=== PATIENT | male | born 1960 | race Caucasian/White ===

== ENCOUNTER 2020-09-15 07:11 | Emergency (ER) | payer OTHER, MEDICAID ==
[~2020-09-15] VITALS: Ht 180.3 cm; Wt 89.7 kg
[2020-09-15] MEDS ORDERED: GABA-845 PO (07:24)
[2020-09-15] MEDS ORDERED: LEXA1TAB2 PO (07:24)
--- NOTE | 2020-09-15 08:00 | REP ---
INDICATION: ro foriegn body COMPARISON: None. TECHNIQUE: AP, lateral, bilateral oblique views . FINDINGS: The osseous structures and joint spaces are intact and normal. There is no evidence for acute fracture or dislocation. Surrounding soft tissues are unremarkable. No subcutaneous emphysema or radiodense foreign body. IMPRESSION: . No subcutaneous emphysema or foreign body. <Electronically signed by Gera Vanegas > 09/15/20 [id number]
[2020-09-15] MEDS ORDERED: LIDOCAINE 2% MDV 20ML VIAL SC ONE (08:40)
[2020-09-15 09:07] VITALS: BP 122/70
== END 2020-09-15 09:22 | disposition home or self-care (01) ==
LOC: M ED 07:11
DX: S60.551A Superficial foreign body of right hand, initial encounter (principal); X58.XXXA Exposure to other specified factors, initial encounter; Y92.89 Other specified places as the place of occurrence of the external cause; Y99.0 Civilian activity done for income or pay; F10.20 Alcohol dependence, uncomplicated; Z79.899 Other long term (current) drug therapy; F17.210 Nicotine dependence, cigarettes, uncomplicated

== ENCOUNTER → 2020-10-08 | Outpatient (REF) | payer MEDICAID ==
[~2020-10-08] MED LIST: GABA-845 PO; LEXA1TAB2 PO
[2020-10-08 17:02] LABS: BASO % 0.5 % (0.0-1.0); EOS # 0.2 10^3/uL (0.0-0.5); EOS % 2.9 % (0.0-3.0); HEMATOCRIT 40.1 % (42.0-52.0); HEMOGLOBIN 13.4 g/dl (13.5-17.5); MEAN CORPUSCULAR HEMOGLOBIN 32.5 pg (27.0-33.0); MEAN CORPUSCULAR HGB CONC 33.4 g/dl (32.0-36.5); MEAN CORPUSCULAR VOLUME 97.3 fl (80.0-96.0); MONO # 0.6 10^3/uL (0.0-0.8); MONO % 9.2 % (2.0-8.0); NEUTROPHILS # 3.5 10^3/uL (1.5-8.5); NEUTROPHILS % 55.2 % (36.0-66.0); PLATELET COUNT, AUTOMATED 260 10^3/uL (150-450); RED BLOOD COUNT 4.12 10^6/uL (4.30-6.10); WHITE BLOOD COUNT 6.3 10^3/uL (4.0-10.0)
[2020-10-08 17:09] LABS: ALBUMIN 4.2 GM/DL (3.2-5.2); ALT/SGPT 62 U/L (12-78); BILIRUBIN,TOTAL 0.2 MG/DL (0.2-1.0); BLOOD UREA NITROGEN 19 MG/DL (7-18); CALCIUM LEVEL 8.8 MG/DL (8.5-10.1); CARBON DIOXIDE LEVEL 31 MEQ/L (21-32); CHLORIDE LEVEL 107 MEQ/L (98-107); CHOLESTEROL LEVEL 207 MG/DL (<200); CHOLESTEROL RISK RATIO 6.272 (<5); CREATININE FOR GFR 1.09 MG/DL (0.70-1.30); GLOMERULAR FILTRATION RATE > 60.0 (>56); GLUCOSE, FASTING 106 MG/DL (70-100); HDL CHOLESTEROL 33 MG/DL (>40); LDL CHOLESTEROL 125 MG/DL (<100); NON-HDL-C 174 MG/DL; POTASSIUM SERUM 4.4 MEQ/L (3.5-5.1); SODIUM LEVEL 140 MEQ/L (136-145); TOTAL PROTEIN 7.2 GM/DL (6.4-8.2); TRIGLYCERIDES LEVEL 244 MG/DL (<150)
[2020-10-08 17:12] LABS: VITAMIN B12 LEVEL 468 PG/ML
[2020-10-08 17:13] LABS: FOLATE 8.5 NG/ML
[2020-10-08 17:23] LABS: HEPATITIS B SURFACE ANTIGEN NEGATIVE (NEGATIVE)
[2020-10-08 17:27] LABS: INR 0.94; PROTHROMBIN TIME 12.7 SECONDS (12.5-14.3)
[2020-10-08 17:28] LABS: PARTIAL THROMBOPLASTIN TIME 34.4 SECONDS (24.2-38.5)
[2020-10-08 17:49] LABS: HEPATITIS C VIRUS ABY INDEX < 0.0 INDEX (<0.8)
[2020-10-08 17:50] LABS: HEPATITIS B CORE ANTIBODY IGM NEGATIVE (NEGATIVE)
[2020-10-08 17:52] LABS: HEPATITIS A ANTIBODY IGM NEGATIVE (NEGATIVE)
== END ==
LOC: M LAB REF 16:20
PROVIDERS: ATTEND Pediatrics
DX: F10.20 Alcohol dependence, uncomplicated (principal); F41.8 Other specified anxiety disorders; Z13.220 Encounter for screening for lipoid disorders

== ENCOUNTER → 2020-10-17 | Outpatient (REF) | payer MEDICAID ==
[2020-10-17 19:10] LABS: PERCENT SATURATION 27.4 % (19.7-50.0)
== END ==
LOC: M LAB REF 17:01
PROVIDERS: ATTEND Pediatrics
DX: R73.9 Hyperglycemia, unspecified (principal); D50.9 Iron deficiency anemia, unspecified

== ENCOUNTER → 2021-06-10 | Outpatient (CLI) | payer BC, MEDICAID ==
[~2021-06-10] MED LIST changes: +GABA-283 PO; -GABA-845 PO
== END ==
LOC: M RAD 07:44
PROVIDERS: ATTEND Pediatrics
DX: Z82.49 Family history of ischemic heart disease and other diseases of the circulatory system (principal)

== ENCOUNTER → 2022-01-22 | Outpatient (REF) | payer BC ==
[2022-01-22 19:42] LABS: BASO % 0.3 % (0.0-1.0); EOS % 0.4 % (0.0-3.0); HEMATOCRIT 44.5 % (42.0-52.0); LYMPH # 1.9 10^3/uL (1.5-5.0); MEAN CORPUSCULAR HGB CONC 33.7 g/dl (32.0-36.5); MEAN CORPUSCULAR VOLUME 97.8 fl (80.0-96.0); MONO # 0.5 10^3/uL (0.0-0.8); MONO % 5.1 % (2.0-8.0); NEUTROPHILS # 7.7 10^3/uL (1.5-8.5); NEUTROPHILS % 74.9 % (36.0-66.0); PLATELET COUNT, AUTOMATED 295 10^3/uL (150-450); RED BLOOD COUNT 4.55 10^6/uL (4.30-6.10); WHITE BLOOD COUNT 10.2 10^3/uL (4.0-10.0)
[2022-01-22 19:52] LABS: ALBUMIN 4.2 GM/DL (3.2-5.2); ALT/SGPT 38 U/L (12-78); BILIRUBIN,DIRECT < 0.1 MG/DL (0.0-0.2); BILIRUBIN,TOTAL 0.5 MG/DL (0.2-1.0); BLOOD UREA NITROGEN 20 MG/DL (7-18); CALCIUM LEVEL 9.9 MG/DL (8.8-10.2); CARBON DIOXIDE LEVEL 27 MEQ/L (21-32); CHLORIDE LEVEL 106 MEQ/L (98-107); CHOLESTEROL LEVEL 203 MG/DL (<200); GLOMERULAR FILTRATION RATE > 60.0 (>49); GLUCOSE, FASTING 98 MG/DL (70-100); HDL CHOLESTEROL 43 MG/DL (>40); LDL CHOLESTEROL 127 MG/DL (<100); NON-HDL-C 160 MG/DL; POTASSIUM SERUM 4.5 MEQ/L (3.5-5.1); SODIUM LEVEL 140 MEQ/L (136-145); TOTAL PROTEIN 7.2 GM/DL (6.4-8.2); TRIGLYCERIDES LEVEL 165 MG/DL (<150)
[2022-01-22 21:00] LABS: HIV 1&2 SCREEN CENTAUR NEGATIVE (NEGATIVE)
[2022-01-22 21:42] LABS: HEMOGLOBIN A1c 5.3 %
== END ==
LOC: M LAB REF 16:27
PROVIDERS: ATTEND Pediatrics
DX: Z11.4 Encounter for screening for human immunodeficiency virus [HIV] (principal); R73.03 Prediabetes; F10.20 Alcohol dependence, uncomplicated

== ENCOUNTER → 2022-08-05 | Outpatient (REF) | payer OTHER, MEDICAID ==
[2022-08-05 17:36] LABS: BASO % 0.6 % (0.0-1.0); EOS # 0.2 10^3/uL (0.0-0.5); EOS % 3.1 % (0.0-3.0); HEMATOCRIT 44.7 % (42.0-52.0); HEMOGLOBIN 14.9 g/dl (13.5-17.5); LYMPH # 2.5 10^3/uL (1.5-5.0); LYMPH % 35.7 % (24.0-44.0); MEAN CORPUSCULAR HEMOGLOBIN 33.1 pg (27.0-33.0); MEAN CORPUSCULAR HGB CONC 33.3 g/dl (32.0-36.5); MEAN CORPUSCULAR VOLUME 99.3 fl (80.0-96.0); MONO # 0.7 10^3/uL (0.0-0.8); MONO % 9.5 % (2.0-8.0); NEUTROPHILS # 3.6 10^3/uL (1.5-8.5); NEUTROPHILS % 50.8 % (36.0-66.0); PLATELET COUNT, AUTOMATED 278 10^3/uL (150-450)
[2022-08-05 18:37] LABS: ALBUMIN 4.1 G/DL (3.2-5.2); BILIRUBIN,DIRECT 0.1 MG/DL (<0.4); BILIRUBIN,TOTAL 0.4 MG/DL (0.3-1.2); TOTAL PROTEIN 6.8 G/DL (5.7-8.2)
[2022-08-05 21:47] LABS: HEMOGLOBIN A1c 5.2 % (4.0-6.0)
== END ==
LOC: M LAB REF 16:33
PROVIDERS: ATTEND Pediatrics
DX: F10.20 Alcohol dependence, uncomplicated (principal); R73.03 Prediabetes; Z12.5 Encounter for screening for malignant neoplasm of prostate

== ENCOUNTER → 2022-09-11 | Outpatient (CLI) | payer OTHER, MEDICAID | LOC: M RAD 14:29 | PROVIDERS: ATTEND Physician Assistant | DX: M25.579 Pain in unspecified ankle and joints of unspecified foot (principal) ==

== ENCOUNTER → 2022-10-02 | Outpatient (CLI) | payer OTHER, MEDICAID | LOC: M RAD 16:03 | PROVIDERS: ATTEND Physician Assistant Medical | DX: M25.572 Pain in left ankle and joints of left foot (principal) ==

== ENCOUNTER 2022-12-31 07:09 | Day surgery (SDC) | payer OTHER ==
[~2022-12-31] VITALS: Ht 180.3 cm; Wt 94.9 kg
[~2022-12-31 07:09] MED LIST changes: +NS 1,000 ML IV ONE
[2022-12-31] MEDS ORDERED: LIDOCAINE 2% 100MG/5ML SDV (FOR ANES.) As Ordered ONE (08:18)
[2022-12-31] MEDS ORDERED: propofoL 200 MG/20 ML VIAL As Ordered ONE (08:18)
[2022-12-31 08:38] VITALS: BP 124/96; O2SAT 96
== END 2022-12-31 08:41 | disposition home or self-care (01) ==
LOC: M OPP 07:09
PROVIDERS: ATTEND Surgery
DX: Z12.11 Encounter for screening for malignant neoplasm of colon (principal); D12.6 Benign neoplasm of colon, unspecified; K64.2 Third degree hemorrhoids; F17.200 Nicotine dependence, unspecified, uncomplicated; Z79.1 Long term (current) use of non-steroidal anti-inflammatories (NSAID)

== ENCOUNTER → 2023-01-16 | Outpatient (REF) | payer OTHER, MEDICAID ==
[~2023-01-16] MED LIST changes: -NS 1,000 ML IV ONE
[2023-01-16 18:04] LABS: BASO % 0.5 % (0.0-1.0); EOS # 0.2 10^3/uL (0.0-0.5); HEMATOCRIT 47.5 % (42.0-52.0); HEMOGLOBIN 16.6 g/dl (13.5-17.5); LYMPH # 2.9 10^3/uL (1.5-5.0); LYMPH % 36.6 % (24.0-44.0); MEAN CORPUSCULAR HEMOGLOBIN 34.5 pg (27.0-33.0); MEAN CORPUSCULAR HGB CONC 34.9 g/dl (32.0-36.5); MEAN CORPUSCULAR VOLUME 98.8 fl (80.0-96.0); MONO # 0.7 10^3/uL (0.0-0.8); MONO % 8.9 % (2.0-8.0); NEUTROPHILS # 4.1 10^3/uL (1.5-8.5); NEUTROPHILS % 51.7 % (36.0-66.0); PLATELET COUNT, AUTOMATED 287 10^3/uL (150-450); RED BLOOD COUNT 4.81 10^6/uL (4.30-6.10); WHITE BLOOD COUNT 7.9 10^3/uL (4.0-10.0)
[2023-01-16 18:15] LABS: HEMOGLOBIN A1c 5.3 % (4.0-6.0)
[2023-01-16 18:23] LABS: ALKALINE PHOSPHATASE 62 U/L (46-116); ALT/SGPT 27 U/L (7.0-40); AST/SGOT 20 U/L (<34); BILIRUBIN,DIRECT < 0.1 MG/DL (<0.4); BILIRUBIN,TOTAL 0.3 MG/DL (0.3-1.2); CHOLESTEROL LEVEL 199 MG/DL (<200); CHOLESTEROL RISK RATIO 4.92 (<5); HDL CHOLESTEROL 40.4 MG/DL (>40); LDL CHOLESTEROL 96.6 MG/DL (<100); NON-HDL-C 158.6 MG/DL; TRIGLYCERIDES LEVEL 310 MG/DL (<150)
== END ==
LOC: M LAB REF 16:37
PROVIDERS: ATTEND Pediatrics
DX: F10.20 Alcohol dependence, uncomplicated (principal); R73.03 Prediabetes; R97.20 Elevated prostate specific antigen [PSA]

== ENCOUNTER → 2023-02-04 | Outpatient (CLI) | payer OTHER ==
[2023-02-04 17:00] LABS: THYROID STIMULATING HORMONE 2.881 uIU/ML (0.55-4.78)
== END ==
LOC: M LAB 16:09
PROVIDERS: ATTEND Pediatrics
DX: R37 Sexual dysfunction, unspecified (principal)

== ENCOUNTER → 2023-04-03 | Outpatient (CLI) | payer OTHER ==
[~2023-04-03] MED LIST changes: -GABA-283 PO; +GABA-284 PO
[2023-04-03 07:23] LABS: LUTEINIZING HORMONE 4.6 mIU/ML (1.5-9.3)
== END ==
LOC: M LAB 06:05
PROVIDERS: ATTEND Physician Assistant
DX: R37 Sexual dysfunction, unspecified (principal)

== ENCOUNTER → 2023-12-02 | Outpatient (CLI) | payer OTHER ==
[2023-12-02 09:54] LABS: HEMATOCRIT 50.6 % (42.0-52.0); MEAN CORPUSCULAR HEMOGLOBIN 35.5 pg (27.0-33.0); MEAN CORPUSCULAR HGB CONC 35.6 g/dl (32.0-36.5); MEAN CORPUSCULAR VOLUME 99.8 fl (80.0-96.0); PLATELET COUNT, AUTOMATED 233 10^3/uL (150-450); RED BLOOD COUNT 5.07 10^6/uL (4.30-6.10); WHITE BLOOD COUNT 8.9 10^3/uL (4.0-10.0)
== END ==
LOC: M LAB 09:30
PROVIDERS: ATTEND Physician Assistant
DX: E29.1 Testicular hypofunction (principal)

== ENCOUNTER → 2024-01-05 | Outpatient (REF) | payer OTHER, MEDICAID ==
[2024-01-06 12:44] LABS: BASO % 0.6 % (0.0-1.0); EOS # 0.2 10^3/uL (0.0-0.5); EOS % 2.5 % (0.0-3.0); HEMATOCRIT 49.4 % (42.0-52.0); LYMPH # 2.3 10^3/uL (1.5-5.0); LYMPH % 32.5 % (24.0-44.0); MEAN CORPUSCULAR HEMOGLOBIN 34.4 pg (27.0-33.0); MEAN CORPUSCULAR HGB CONC 34.4 g/dl (32.0-36.5); MONO # 0.7 10^3/uL (0.0-0.8); MONO % 9.9 % (2.0-8.0); NEUTROPHILS # 3.9 10^3/uL (1.5-8.5); NEUTROPHILS % 54.4 % (36.0-66.0); PLATELET COUNT, AUTOMATED 237 10^3/uL (150-450); RED BLOOD COUNT 4.94 10^6/uL (4.30-6.10); WHITE BLOOD COUNT 7.1 10^3/uL (4.0-10.0)
[2024-01-06 12:49] LABS: CHOLESTEROL RISK RATIO 3.03 (<5); HDL CHOLESTEROL 39.9 MG/DL (>40); LDL CHOLESTEROL 44.1 MG/DL (<100); NON-HDL-C 81.1 MG/DL
[2024-01-06 13:06] LABS: HEMOGLOBIN A1c 5.8 % (4.0-6.0)
== END ==
LOC: M LAB REF 11:32
PROVIDERS: ATTEND Pediatrics
DX: Z79.890 Hormone replacement therapy (principal); E78.5 Hyperlipidemia, unspecified; R73.03 Prediabetes

== ENCOUNTER → 2024-02-16 | Outpatient (CLI) | payer OTHER | LOC: M RAD 13:44 | PROVIDERS: ATTEND Pediatrics | DX: F17.210 Nicotine dependence, cigarettes, uncomplicated (principal) ==

== ENCOUNTER → 2024-07-27 | Outpatient (REF) | LOC: M EMP 10:28 | PROVIDERS: ATTEND Family Medicine | DX: Z11.52 Encounter for screening for COVID-19 (principal) ==

== ENCOUNTER → 2024-08-31 | Outpatient (CLI) | payer OTHER | LOC: M RAD 15:31 | PROVIDERS: ATTEND Pediatrics | DX: R91.1 Solitary pulmonary nodule (principal) ==

== ENCOUNTER → 2024-09-08 | Outpatient (CLI) | payer OTHER ==
[2024-09-08 13:02] LABS: BASO % 0.5 % (0.0-1.0); EOS # 0.1 10^3/uL (0.0-0.5); EOS % 1.1 % (0.0-3.0); HEMATOCRIT 49.5 % (42.0-52.0); LYMPH # 1.6 10^3/uL (1.5-5.0); LYMPH % 29.4 % (24.0-44.0); MEAN CORPUSCULAR HEMOGLOBIN 34.6 pg (27.0-33.0); MEAN CORPUSCULAR HGB CONC 34.3 g/dl (32.0-36.5); MEAN CORPUSCULAR VOLUME 100.6 fl (80.0-96.0); MONO # 0.9 10^3/uL (0.0-0.8); MONO % 16.8 % (2.0-8.0); NEUTROPHILS # 2.9 10^3/uL (1.5-8.5); PLATELET COUNT, AUTOMATED 208 10^3/uL (150-450); RED BLOOD COUNT 4.92 10^6/uL (4.30-6.10); WHITE BLOOD COUNT 5.6 10^3/uL (4.0-10.0)
[2024-09-08 13:23] LABS: URIC ACID 7.9 MG/DL (3.7-9.2)
[2024-09-08 13:25] LABS: LDH LACTATE DEHYDROGENASE 215 U/L (120-246)
[2024-09-08 13:26] LABS: ALBUMIN 3.7 G/DL (3.2-5.2); ALKALINE PHOSPHATASE 57 U/L (40-129); ALT/SGPT 37 U/L (7.0-40); AST/SGOT 26 U/L (<34); BILIRUBIN,TOTAL 0.7 MG/DL (0.3-1.2); BLOOD UREA NITROGEN 16 MG/DL (9-23); CALCIUM LEVEL 8.8 MG/DL (8.3-10.6); CARBON DIOXIDE LEVEL 28 MMOL/L (20-31); CHLORIDE LEVEL 104 MMOL/L (98-107); GLOMERULAR FILTRATION RATE > 60.0 (>49); GLUCOSE, FASTING 99 MG/DL (74-106); POTASSIUM SERUM 4.1 MMOL/L (3.5-5.1); SODIUM LEVEL 140 MMOL/L (136-145); TOTAL PROTEIN 6.8 G/DL (5.7-8.2)
[2024-09-08 13:40] LABS: HEPATITIS B SURFACE ANTIGEN NEGATIVE (NEGATIVE)
[2024-09-08 13:52] LABS: HIV 1&2 SCREEN NEGATIVE (NEGATIVE)
[2024-09-08 14:01] LABS: HEPATITIS C VIRUS ABY INDEX 0.12 INDEX (<0.8)
[2024-09-09 08:07] LABS: T P ELECTROPHORESIS SO 6.9 g/dL (6.1-8.1)
[2024-09-09 13:28] LABS: HEPATITIS B CORE ANTIBODY IGG REACTIVE (NON-REACTIVE)
== END ==
LOC: M LAB 10:23
PROVIDERS: ATTEND Pediatrics
DX: R59.1 Generalized enlarged lymph nodes (principal)

== ENCOUNTER → 2024-09-15 | Outpatient (CLI) | payer OTHER ==
[~2024-09-15] MED LIST changes: +ISOVUE-370 76% 100ML VIAL ONE
== END ==
LOC: M PLAIMG 12:25
PROVIDERS: ATTEND Pediatrics
DX: I89.0 Lymphedema, not elsewhere classified (principal)
CPT/HCPCS: 74177; Q9967

== ENCOUNTER → 2024-09-30 | Outpatient (CLI) | payer OTHER ==
[~2024-09-30] MED LIST changes: -ISOVUE-370 76% 100ML VIAL ONE
[2024-09-30 11:15] LABS: ALBUMIN 3.8 G/DL (3.2-5.2); ALKALINE PHOSPHATASE 63 U/L (40-129); ALT/SGPT 34 U/L (7.0-40); AST/SGOT 33 U/L (<34); BILIRUBIN,TOTAL 0.7 MG/DL (0.3-1.2); BLOOD UREA NITROGEN 12 MG/DL (9-23); CALCIUM LEVEL 8.8 MG/DL (8.3-10.6); CARBON DIOXIDE LEVEL 25 MMOL/L (20-31); CHLORIDE LEVEL 103 MMOL/L (98-107); GLOMERULAR FILTRATION RATE > 60.0 (>49); GLUCOSE, FASTING 106 MG/DL (74-106); POTASSIUM SERUM 4.3 MMOL/L (3.5-5.1); SODIUM LEVEL 139 MMOL/L (136-145); TOTAL PROTEIN 7.1 G/DL (5.7-8.2)
[2024-09-30 11:38] LABS: HEMOGLOBIN A1c 5.1 % (4.0-6.0)
== END ==
LOC: M LAB 09:50
PROVIDERS: ATTEND Pediatrics
DX: F10.20 Alcohol dependence, uncomplicated (principal)

== ENCOUNTER → 2024-09-30 | Outpatient (CLI) | payer OTHER ==
[2024-09-30 10:49] LABS: HEMATOCRIT 48.8 % (42.0-52.0); HEMOGLOBIN 17.4 g/dl (13.5-17.5); MEAN CORPUSCULAR HEMOGLOBIN 35.3 pg (27.0-33.0); MEAN CORPUSCULAR HGB CONC 35.7 g/dl (32.0-36.5); PLATELET COUNT, AUTOMATED 221 10^3/uL (150-450); RED BLOOD COUNT 4.93 10^6/uL (4.30-6.10); WHITE BLOOD COUNT 5.5 10^3/uL (4.0-10.0)
[2024-09-30 11:14] LABS: PSA SCREENING 2.71 NG/ML (< 4.00)
== END ==
LOC: M LAB 09:52
PROVIDERS: ATTEND Physician Assistant
DX: E29.1 Testicular hypofunction (principal)

== ENCOUNTER → 2025-02-06 | Outpatient (CLI) | payer OTHER ==
[~2025-02-06] MED LIST changes: +SILD50TA2; +TEST200I14
== END ==
LOC: M CARPUL 16:08
PROVIDERS: ATTEND Internal Medicine Hematology & Oncology
DX: C81.90 Hodgkin lymphoma, unspecified, unspecified site (principal)

== ENCOUNTER → 2025-02-06 | Outpatient (CLI) | payer OTHER | LOC: M PLARAD 11:13 | PROVIDERS: ATTEND Internal Medicine Hematology & Oncology | DX: C81.98 Hodgkin lymphoma, unspecified, lymph nodes of multiple sites (principal) | CPT/HCPCS: 78815; A9552 ==

== ENCOUNTER → 2025-02-09 | Outpatient (CLI) | payer OTHER ==
[~2025-02-09] MED LIST changes: +ONDA-84 PO; +PROC10TA5 PO; +PROHANCE 279.3MG/ML 15ML VIAL As Ordered ONE; +PROHANCE 279.3MG/ML 5ML VIAL As Ordered ONE
== END ==
LOC: M RAD 16:25
PROVIDERS: ATTEND Pediatrics
DX: H81.10 Benign paroxysmal vertigo, unspecified ear (principal); C85.90 Non-Hodgkin lymphoma, unspecified, unspecified site; Z87.820 Personal history of traumatic brain injury
CPT/HCPCS: 70553; A9576

== ENCOUNTER → 2025-02-10 | Outpatient (CLI) | payer OTHER ==
[~2025-02-10] MED LIST changes: -PROHANCE 279.3MG/ML 15ML VIAL As Ordered ONE; -PROHANCE 279.3MG/ML 5ML VIAL As Ordered ONE
== END ==
LOC: M IRPRO 08:53
PROVIDERS: ATTEND Internal Medicine Hematology & Oncology
DX: C81.90 Hodgkin lymphoma, unspecified, unspecified site (principal)
CPT/HCPCS: 36569; C1751

== ENCOUNTER → 2025-02-20 | Outpatient (CLI) | payer OTHER ==
[~2025-02-20] MED LIST changes: +LIDO30CR18 TOP
[2025-02-20 16:14] LABS: CREATININE FOR GFR 0.93 MG/DL (0.70-1.30); GLOMERULAR FILTRATION RATE > 90.0 (>49)
== END ==
LOC: M LAB 15:06
PROVIDERS: ATTEND Physician Assistant Medical
DX: J38.3 Other diseases of vocal cords (principal); R07.0 Pain in throat; R49.0 Dysphonia

== ENCOUNTER → 2025-02-23 | Outpatient (CLI) | payer OTHER ==
[~2025-02-23] MED LIST changes: +BUSP5TA; +ISOVUE-370 76% 100 ML VIAL As Ordered ONE
== END ==
LOC: M RAD 13:53
PROVIDERS: ATTEND Physician Assistant Medical
DX: J38.3 Other diseases of vocal cords (principal)
CPT/HCPCS: 70491; Q9967

== ENCOUNTER → 2025-02-27 | Outpatient (CLI) | payer OTHER ==
[~2025-02-27] VITALS: Ht 180.3 cm; Wt 93.0 kg
[~2025-02-27] MED LIST changes: -BUSP5TA; -ISOVUE-370 76% 100 ML VIAL As Ordered ONE
[2025-02-27 10:40] VITALS: TEMP 97.8
[2025-02-27] MEDS: ceFAZolin SODIUM 2 GM in DEXTROSE 5% (D5W) ADV/MINI-BAG 50 ML IV ONE (10:58)
[2025-02-27] MEDS: MIDAZOLAM INJ 2 MG/2 ML VIAL IV PRN (11:38)
[2025-02-27] MEDS: LIDOCAINE 1% MDV 20 ML VIAL SC SCH (11:52)
[2025-02-27] MEDS: NS (Normal Saline) 0.9% 1,000 ML IV SCH (11:53)
[2025-02-27 12:24] VITALS: BP 154/87; O2SAT 98
== END ==
LOC: M IRPRO 10:18
PROVIDERS: ATTEND Internal Medicine Hematology & Oncology
DX: C81.90 Hodgkin lymphoma, unspecified, unspecified site (principal)
CPT/HCPCS: 36561; 99152; 99153; J0690; J1642; J2250; J3010

== ENCOUNTER → 2025-05-03 | Outpatient (CLI) | payer OTHER ==
[~2025-05-03] MED LIST changes: +BUSP5TA; +FLUTISP
[2025-05-03 16:14] LABS: PLATELET COUNT, AUTOMATED 126 10^3/uL (150-450)
[2025-05-03 16:39] LABS: ALT/SGPT 28 U/L (7.0-40); AST/SGOT 17 U/L (<34); CALCIUM LEVEL 9.0 MG/DL (8.3-10.6); CARBON DIOXIDE LEVEL 28 MMOL/L (20-31); CHLORIDE LEVEL 102 MMOL/L (98-107); CREATININE FOR GFR 0.82 MG/DL (0.70-1.30); GLOMERULAR FILTRATION RATE > 90.0 (>49); POTASSIUM SERUM 3.6 MMOL/L (3.5-5.1); RHEUMATOID FACTOR QUANT < 3.5 IU/ML (<14); SODIUM LEVEL 139 MMOL/L (136-145)
[2025-05-03 16:40] LABS: VITAMIN B12 LEVEL 671 PG/ML (211-911)
[2025-05-03 16:41] LABS: FREE T4 1.04 NG/DL (0.89-1.76)
[2025-05-03 18:14] LABS: ESTIMATED AVERAGE GLUCOSE 151.0 MG/DL (60-110)
[2025-05-03 19:24] LABS: LYMPHOCYTES 4 % (16-44); NEUTROPHILS 94 % (28-66)
[2025-05-03 19:26] LABS: PLATELET ESTIMATE DECREASED (NORMAL)
[2025-05-05 11:47] LABS: T P ELECTROPHORESIS SO 6.2 g/dL (6.1-8.1)
== END ==
LOC: M PLALAB 15:14 → M LAB 15:14
PROVIDERS: ATTEND Psychiatry & Neurology Neurology
DX: E11.9 Type 2 diabetes mellitus without complications (principal); E07.9 Disorder of thyroid, unspecified; R20.0 Anesthesia of skin; R26.81 Unsteadiness on feet

== ENCOUNTER → 2025-05-04 | Outpatient (CLI) | payer OTHER ==
[~2025-05-04] MED LIST changes: +ISOVUE-370 76% 100 ML VIAL As Ordered ONE
== END ==
LOC: M RAD 13:19
DX: C81.40 Lymphocyte-rich Hodgkin lymphoma, unspecified site (principal); R91.1 Solitary pulmonary nodule; K59.00 Constipation, unspecified
CPT/HCPCS: 71260; 74177; Q9967

== ENCOUNTER → 2025-06-13 | Outpatient (CLI) | payer OTHER ==
[~2025-06-13] MED LIST changes: -ISOVUE-370 76% 100 ML VIAL As Ordered ONE; +METF-838
== END ==
LOC: M ONCM 07:59
PROVIDERS: ATTEND Dietitian, Registered
DX: Z71.3 Dietary counseling and surveillance (principal); C81.90 Hodgkin lymphoma, unspecified, unspecified site; Z79.899 Other long term (current) drug therapy

== ENCOUNTER → 2025-06-14 | Outpatient (REF) | payer OTHER ==
[2025-06-14 16:47] LABS: CHOLESTEROL LEVEL 167.0 MG/DL (<200); CHOLESTEROL RISK RATIO 4.69 (<5); LDL CHOLESTEROL 86.6 MG/DL (<100); NON-HDL-C 131.4 MG/DL; TRIGLYCERIDES LEVEL 224.0 MG/DL (<150)
[2025-06-14 17:30] LABS: ESTIMATED AVERAGE GLUCOSE 108.0 MG/DL (60-110)
== END ==
LOC: M LAB REF 16:15
PROVIDERS: ATTEND Pediatrics
DX: R73.03 Prediabetes (principal)